=== PATIENT | female | born 1995 | race Caucasian/White ===

== ENCOUNTER 2022-02-14 14:33 | Outpatient (REF) | payer MEDICAID, SELFPAY ==
[2022-02-15 09:53] LABS: BV Int Neg Control Negative (Negative); BV Int Pos Control Positive (Positive)
[2022-02-15 10:17] LABS: CT PCR NOT DETECTED (Not Detect.); NG PCR NOT DETECTED (Not Detect.)
== END 2022-02-14 14:34 | disposition home or self-care (01) ==
LOC: HO.LAB 14:33
PROVIDERS: Visit Provider Advanced Practice Midwife
DX: Z32.01 Encounter for pregnancy test, result positive (principal); N92.6 Irregular menstruation, unspecified; R11.0 Nausea; Z20.2 Contact with and (suspected) exposure to infections with a predominantly sexual mode of transmission
CPT/HCPCS: 81025; 87480; 87491; 87510; 87591; 87660; 99202

== ENCOUNTER 2022-02-17 11:36 | Emergency (ER) | payer MEDICAID, SELFPAY ==
--- NOTE | ~2022-02-17 | US_ITS ---
EXAMINATION: US OBSTETRICAL ULTRASOUND CLINICAL INFORMATION: Lower abdominal pain and cramping COMPARISON: None. LMP: 12/11/2021. Gestational age by maternal dates is 9 weeks and 5 days. Estimated date of delivery by maternal dates is 09/17/2022. TECHNIQUE: Ultrasound of the maternal pelvis is performed using transabdominal and transvaginal transducers. Transvaginal imaging is performed due to inadequate visualization transabdominally. M-mode Doppler is also performed. FINDINGS: There is a single intrauterine gestational sac with visible yolk sac, and embryo/fetus. No definite cardiac activity. Moderate to large volume of subchorionic hematoma is noted. HR: cardiac definitively is not definitively determined as heart rate is not appreciated on M-mode. CRL (crown rump length): 0.5 cm (6 weeks and 2 days +/- 4 days). FLY (estimated date of delivery): 10/11/2022 +/- 4 days. MATERNAL ADNEXA: The right maternal ovary measures 1.9 x 1.3 x 1.6 cm. The left maternal ovary measures 2.7 x 1.5 x 1.8 cm. Ovaries are unremarkable in appearance. There is no significant maternal adnexal mass. No maternal pelvic ascites. US/US OB pelvic and transvaginal IMPRESSION: 1. Single intrauterine gestation with no definite cardiac activity identified with the crown-rump length measuring 0.5 cm. Sonographic age corresponds to 6 weeks and 2 days with an FLY of 10/11/2022. Findings are suspicious but not diagnostic for failure. Recommend follow-up ultrasound in 7-14 days and correlation with beta hCG. Moderate to large amount of subchorionic hematoma is also noted.
[2022-02-17 11:40] VITALS: BP 102/61; PULSE 71; RESP 18; TEMP 36.4; O2SAT 100; BMI 36.4
[2022-02-17 11:57] LABS: MANUAL DIFF FLAG NO
[2022-02-17 11:59] LABS: Basophils Percent Auto 0.3 % (0-2); Eosinophils Absolute Auto 0.1 X10*3/uL (0.0-0.4); Eosinophils Percent Auto 1.2 % (0-4); Hematocrit 34.8 % (37.0-47.0); Hemoglobin 11.1 g/dl (12.0-16.0); Imm Gran Abs Auto 0.04 X10*3/uL (0.00-0.03); Imm Gran Pct Auto 0.4 % (0.0-0.4); Lymphocytes Absolute Auto 2.8 X10*3/uL (1.2-4.9); Lymphocytes Percent Auto 29.5 % (20-40); Mean Corpuscular HGB Conc 31.9 g/dl (31.0-35.0); Mean Corpuscular Hemoglobin 26.5 pg (27.0-33.0); Mean Corpuscular Volume 83.1 fL (80.0-98.0); Mean Platelet Volume 10.6 fL (9.4-12.3); Monocytes Absolute Auto 0.5 X10*3/uL (0.1-1.2); Monocytes Percent Auto 5.6 % (2-11); Platelet Count 342 X10*3/uL (160-400); Red Blood Count 4.19 X10*6/uL (4.20-5.50); Red Cell Distribution Width 13.2 % (11.0-16.0); White Blood Count 9.5 X10*3/uL (4.8-10.8)
[2022-02-17 12:17] LABS: Anion Gap 11 (12-20); Blood Urea Nitrogen 8 mg/dL (9-16); Calcium 9.3 mg/dL (8.4-10.2); Carbon Dioxide 25 mmol/L (22-29); Chloride 103 mmol/L (96-108); Estimated Glomerular Filt Rate > 60; Glucose Random 77 mg/dL (60-115); Potassium 4.4 mmol/L (3.3-5.1); Sodium 135 mmol/L (135-145)
--- NOTE | 2022-02-17 16:13 | ED.ABDPAIN ---
HPI - Abdominal Pain General Chief Complaint: Abdominal Pain Stated Complaint: 9wks abdominal pain Time Seen by Provider: 02/17/22 16:06 Source: patient and hourly sign language interpreter Mode of arrival: ambulatory Limitations: no limitations History of Present Illness HPI narrative: G2P 9 weeks D = LMP here with c/o low intermittent pelvic pain no discharge no bleeding no n/v/d x 1 week sent by OB for US. Has no other complaints, no issues during first tested for STI on MD elicited complaint: abdominal pain Pertinent past history: other (9 weeks ) Onset (ago): week(s) (1) Pain Consistency: intermittent Location: suprapubic Severity: mild Quality: cramping Migration to: no migration Exacerbating factors: nothing Relieving factors: nothing Associated symptoms: denies other symptoms Related Data Previous Rx's Medication Instructions Recorded doxylamine succinate 25 mg tablet 25 mg PO BEDTIME PRN sleep #30 tabs 02/14/22 (Unisom (doxylamine)) vitamin with calcium 1 tab PO DAILY #30 tabs 02/14/22 no.72-iron 27 mg-folic acid 1 mg tablet ( Vitamins Plus Low Iron) pyridoxine (vitamin B6) 25 mg 25 mg PO TID PRN nausea and 02/14/22 tablet (Vitamin B-6) vomiting #90 tabs Allergies Allergy/AdvReac Type Severity Reaction Status Date / Time No Known Allergies Allergy Verified 02/14/22 14:42 Review of Systems Review of Systems Constitutional : No Weight loss, No Fever, No Chills ENT/Mouth : No sore throat, No Rhinorrhea Eyes: No Swelling, No Redness Cardiovascular : No Chest Pain, No SOB, NoEdema Respiratory : No Cough, No Sputum, No Wheezing Gastrointestinal : no Nausea, no Vomiting,no Diarrhea, positive abdominal Pain, No Hematochezia, No Melena Genitourinary : No Dysuria, No Urinary Frequency, No Hematuria, No Urgency , no vaginal bleeding Musculoskeletal : No joint pain, No Myalgias, No Joint Swelling Skin : No Skin Lesions, No rash Neuro : No Weakness, No Numbness, No Dizziness, No Headache Psych : No Anxiety/Panic, No Depression Heme/Lymph: No Bruising, No Lymphadenopathy Endocrine : No Polyuria, No Polydipsia All other systems reviewed and are negative. [facility] [place] Past Medical History Attestation statement: The following information was validated with the patient. Medical History Irregular menses PCOS (polycystic ovarian syndrome) Surgical History History of skin graft Social History Social History Alcohol intake: current Alcohol intake frequency: holidays/special occasions only Patient Tobacco Use Status: Never used Tobacco Advance Directives: No Advance Directives Information Provided: No Sexual orientation: Straight/Heterosexual Gender identity: Female Physical Exam ED Vital Signs: Vital Signs - 24 hr 02/17/22 11:40 Temperature 97.5 F Pulse Rate 71 Respiratory Rate 18 Blood Pressure 102/61 Pulse Oximetry 100 Oxygen Delivery Method Room Air BMI result Body Mass Index 36.4 Appearance: Alert. Oriented X3. No acute distress. Eyes: Pupils equal, round and reactive to light. ENT: Pharynx normal. Neck: Normal inspection. Neck supple. CVS: Normal heart rate and rhythm. Pulses normal. Respiratory: No respiratory distress. Breath sounds normal. Abdomen: Soft and non-tender. no rebound or guarding Skin: Skin warm and dry. Normal skin color. Normal skin turgor. Extremities: No lower extremity edema. No calf ttp Neuro: Oriented X 3. No motor deficit. No sensory deficit. Course Course Course Narrative: discussed at length need for follow up in 2 days for repeat hcg and US in 2 days suspect demise discussed reasons to return and that she may miscarry at home MDM - Abdominal Pain MDM Narrative Medical decision making narrative: 26 yo female 9 weeks D = LMP here with c/o low intermittent pelvic pain no associated vaginal bleeding, n/v/d, urinary problems, just had STI panel. At this time will obtain UA, US to r/o ectopic though she has no peritoneal signs. Lab Data Result diagrams: 02/17/22 11:54 02/17/22 11:54 Labs: Lab Results 02/17/22 02/17/22 02/17/22 Range/Units 11:54 11:54 11:54 WBC 9.5 (4.8-10.8) X10*3/uL RBC 4.19 L (4.20-5.50) X10*6/uL Hgb 11.1 L (12.0-16.0) g/dl Hct 34.8 L (37.0-47.0) % MCV 83.1 (80.0-98.0) fL MCH 26.5 L (27.0-33.0) pg MCHC 31.9 (31.0-35.0) g/dl RDW 13.2 (11.0-16.0) % Plt Count 342 (160-400) X10*3/uL MPV 10.6 (9.4-12.3) fL Immature Gran % (Auto) 0.4 (0.0-0.4) % Neut % (Auto) 63.0 (45-73) % Lymph % (Auto) 29.5 (20-40) % [place] % (Auto) 5.6 (2-11) % Eos % (Auto) 1.2 (0-4) % Baso % (Auto) 0.3 (0-2) % Lymph # (Auto) 2.8 (1.2-4.9) X10*3/uL [place] # (Auto) 0.5 (0.1-1.2) X10*3/uL Eos # (Auto) 0.1 (0.0-0.4) X10*3/uL Baso # (Auto) 0.0 (0.0-0.2) X10*3/uL Abs Immat Gran (auto) 0.04 H (0.00-0.03) X10*3/uL Absolute Neuts (auto) 6.0 (2.0-8.3) x10*3/uL Absolute Nucleated RBC 0.000 (0.0-0.012) X10*3/uL Nucleated RBC % (auto) 0.0 (0.0-0.2) /100WBC Sodium 135 (135-145) mmol/L Potassium 4.4 (3.3-5.1) mmol/L Chloride 103 (96-108) mmol/L Carbon Dioxide 25 (22-29) mmol/L Anion Gap 11 L (12-20) BUN 8 L (9-16) mg/dL Creatinine 0.65 (0.5-1.4) mg/dL Estim Creat Clear Calc 134.0 Estimated GFR > 60 Random Glucose 77 (60-115) mg/dL Calcium 9.3 (8.4-10.2) mg/dL Beta HCG, Quant 51437 mIU/mL Urine Color Urine Appearance Urine pH (5.0-8.0) Ur Specific [place] (1.005-1.025) Urine Protein (NEG-TRACE) MG/DL Urine Glucose (UA) (NEG) MG/DL Urine Ketones (NEG) MG/DL Urine Blood (NEG) Urine Nitrite (NEG) Ur Leukocyte Esterase (NEG) 02/17/22 Range/Units 16:34 WBC (4.8-10.8) X10*3/uL RBC (4.20-5.50) X10*6/uL Hgb (12.0-16.0) g/dl Hct (37.0-47.0) % MCV (80.0-98.0) fL MCH (27.0-33.0) pg MCHC (31.0-35.0) g/dl RDW (11.0-16.0) % Plt Count (160-400) X10*3/uL MPV (9.4-12.3) fL Immature Gran % (Auto) (0.0-0.4) % Neut % (Auto) (45-73) % Lymph % (Auto) (20-40) % [place] % (Auto) (2-11) % Eos % (Auto) (0-4) % Baso % (Auto) (0-2) % Lymph # (Auto) (1.2-4.9) X10*3/uL [place] # (Auto) (0.1-1.2) X10*3/uL Eos # (Auto) (0.0-0.4) X10*3/uL Baso # (Auto) (0.0-0.2) X10*3/uL Abs Immat Gran (auto) (0.00-0.03) X10*3/uL Absolute Neuts (auto) (2.0-8.3) x10*3/uL Absolute Nucleated RBC (0.0-0.012) X10*3/uL Nucleated RBC % (auto) (0.0-0.2) /100WBC Sodium (135-145) mmol/L Potassium (3.3-5.1) mmol/L Chloride (96-108) mmol/L Carbon Dioxide (22-29) mmol/L Anion Gap (12-20) BUN (9-16) mg/dL Creatinine (0.5-1.4) mg/dL Estim Creat Clear Calc Estimated GFR Random Glucose (60-115) mg/dL Calcium (8.4-10.2) mg/dL Beta HCG, Quant mIU/mL Urine Color YELLOW Urine Appearance CLEAR Urine pH 5.5 (5.0-8.0) Ur Specific [place] 1.015 (1.005-1.025) Urine Protein NEG (NEG-TRACE) MG/DL Urine Glucose (UA) NEG (NEG) MG/DL Urine Ketones NEG (NEG) MG/DL Urine Blood NEG (NEG) Urine Nitrite NEG (NEG) Ur Leukocyte Esterase NEG (NEG) Discharge Plan Discharge Clinical Impression: Threatened miscarriage Patient Disposition: Home, Self-Care Instructions: Threatened Miscarriage (ED) Additional Instructions: necesita repetir los an?lisis de henrietta en 2 d?as para los niveles hormonales y repetir el ultrasonido en 2 d?as puede empezar a sangrar y tener un aborto espont?amanda en casa. si tiene sangrado yohana, dolor y co?gulos grandes, regrese. llama a tu obstetra ma?ivan 1. Single intrauterine gestation with no definite cardiac activity identified with the crown-rump length measuring 0.5 cm. Sonographic age corresponds to 6 weeks and 2 days with an FLY of 10/11/2022. Findings are suspicious but not diagnostic for failure. Recommend follow-up ultrasound in 7-14 days and correlation with beta hCG. Moderate to large amount of subchorionic hematoma is also noted. ? Prescriptions: No Action Unisom (doxylamine) 25 mg tablet 25 mg PO BEDTIME PRN (Reason: sleep) Qty: 30 3RF pyridoxine (vitamin B6) [Vitamin B-6] 25 mg tablet 25 mg PO TID PRN (Reason: nausea and vomiting) Qty: 90 3RF Rx Instructions: may take every 6-8 hours for nausea Vitamin Plus Low Iron 27 mg iron- 1 mg tablet 1 tab PO DAILY Qty: 30 11RF Stand Alone Forms: Work/School Release Print Language: Sinhala
[2022-02-17 16:39] LABS: Appearance Urine CLEAR; Color Urine YELLOW; Glucose Urine UA NEG (NEG); Leukocyte Esterase Urine NEG (NEG); Nitrite Urine NEG (NEG); PH 5.5 (5.0-8.0); Specific Gravity - Urine 1.015 (1.005-1.025); Urine Blood NEG (NEG); Urine Ketones NEG (NEG); Urine Protein NEG (NEG-TRACE)
== END 2022-02-17 19:06 | disposition home or self-care (01) ==
PROVIDERS: Emergency Provider Emergency Medicine
DX: O20.0 Threatened abortion (principal); Z3A.09 9 weeks gestation of pregnancy
CPT/HCPCS: 36415; 76801; 76817; 80048; 81003; 84702; 85025; 99282; 99284

== ENCOUNTER 2022-02-19 09:53 | Emergency (ER) | payer MEDICAID, SELFPAY ==
[2022-02-19 10:18] VITALS: BP 100/58; PULSE 88; RESP 18; TEMP 36.9; O2SAT 98; BMI 33.6
[2022-02-19 10:41] LABS: MANUAL DIFF FLAG NO
[2022-02-19 10:43] LABS: Basophils Percent Auto 0.3 % (0-2); Eosinophils Absolute Auto 0.1 X10*3/uL (0.0-0.4); Eosinophils Percent Auto 0.8 % (0-4); Hematocrit 35.4 % (37.0-47.0); Hemoglobin 11.3 g/dl (12.0-16.0); Imm Gran Abs Auto 0.03 X10*3/uL (0.00-0.03); Imm Gran Pct Auto 0.3 % (0.0-0.4); Lymphocytes Absolute Auto 2.6 X10*3/uL (1.2-4.9); Lymphocytes Percent Auto 28.7 % (20-40); Mean Corpuscular HGB Conc 31.9 g/dl (31.0-35.0); Mean Corpuscular Hemoglobin 26.6 pg (27.0-33.0); Mean Corpuscular Volume 83.3 fL (80.0-98.0); Mean Platelet Volume 10.5 fL (9.4-12.3); Monocytes Absolute Auto 0.4 X10*3/uL (0.1-1.2); Monocytes Percent Auto 4.2 % (2-11); Neutrophils Percent Auto 65.7 % (45-73); Platelet Count 357 X10*3/uL (160-400); Red Blood Count 4.25 X10*6/uL (4.20-5.50); Red Cell Distribution Width 13.2 % (11.0-16.0); White Blood Count 9.1 X10*3/uL (4.8-10.8)
[2022-02-19 10:47] LABS: Appearance Urine HAZY; Color Urine YELLOW; Glucose Urine UA NEG (NEG); Leukocyte Esterase Urine NEG (NEG); Nitrite Urine NEG (NEG); PH 5.5 (5.0-8.0); Specific Gravity - Urine >= 1.030 (1.005-1.025); UPreg QC Valid YES; Urine Blood NEG (NEG); Urine Ketones NEG (NEG); Urine Pregnancy POSITIVE (NEGATIVE); Urine Protein NEG (NEG-TRACE)
[2022-02-19 10:54] LABS: Anion Gap 14 (12-20); Blood Urea Nitrogen 12 mg/dL (9-16); Calcium 9.1 mg/dL (8.4-10.2); Carbon Dioxide 20 mmol/L (22-29); Chloride 105 mmol/L (96-108); Creatinine Clr Calc Pharmacy 118.2; Estimated Glomerular Filt Rate > 60; Glucose Random 122 mg/dL (60-115); Sodium 135 mmol/L (135-145)
--- NOTE | 2022-02-19 12:57 | ED_ITS ---
HPI - General Chief complaint: Recheck/Abnormal Lab/Rx Stated complaint: Repeat labs/ultrasound 6 wks preg Time Seen by Provider: 02/19/22 11:07 Source: patient and family Mode of arrival: ambulatory Limitations: language barrier ( Wallisian-speaking) History of Present Illness HPI Narrative: 26-year-old female who is Wallisian-speaking who is AB1 was told she was 9 weeks due to her last menstrual period presenting here with persistent abdominal pain that has been unchanged for the past few days. She was seen here on 02/17/2022 for same complaint and had a serum quant and ultrasound although the ultrasound revealed a moderate to large subchorionic hemtoma and they recommended repeat ultrasound in 7-14 days and they reported that it is suspicious but not diagnostic for failure. Although the patient was told to come back in 2 days by the provider who seen her for repeat serum quant and repeat ultrasound due to she did not have PCP or OBGYN follow-up per the patient. Although when I reviewed the records it appears that the patient was seen by the security police officer Melvi Deleon and Melvi Deleon had ordered outpatient labs and an outpatient ultrasound and the patient I believe did not understand Melvi Deleon and came here to the ER instead for the ultrasound On 02/17/2022 and this is when Dr. Han seen her. She denies any worsening abdominal pain, any fevers, any nausea vomiting, any back pain, any flank pain, any abnormal vaginal discharge or any dysuria or urinary urgency or frequency or any vaginal bleeding at this time. She reports she needs help to find a OBGYN and PCP. I explained to her that Melvi Deleon the security police officer will most likely follow up with her as her Ob security police officer and Dr. Zerbe. VARGAS Complaint: abdominal pain Onset (ago): day(s) ( for the past few days and unchange) Pain Consistency: constant Location: pelvis and abdomen Severity: mild Quality: Cramping and Aching Relieving factors: none Exacerbating factors: none Associated symptoms: denies other symptoms Vaginal discharge: none Vaginal bleeding: none Patient : Yes Expected Date of Delivery: 10/11/22 Number of Weeks : 9 OB History - Previous Pregnancies: miscarriage care: followed by OB Related Data : 2 Para: 0 Total number of abortions (spontaneous and elective): 1 Previous Rx's Medication Instructions Recorded doxylamine succinate 25 mg tablet 25 mg PO BEDTIME PRN sleep #30 tabs 02/14/22 (Unisom (doxylamine)) vitamin with calcium 1 tab PO DAILY #30 tabs 02/14/22 no.72-iron 27 mg-folic acid 1 mg tablet ( Vitamins Plus Low Iron) pyridoxine (vitamin B6) 25 mg 25 mg PO TID PRN nausea and 02/14/22 tablet (Vitamin B-6) vomiting #90 tabs metronidazole 500 mg tablet 500 mg PO BID 10 days #20 tabs 02/19/22 Allergies Allergy/AdvReac Type Severity Reaction Status Date / Time No Known Allergies Allergy Verified 02/14/22 14:42 Review of Systems Review of Systems: Constitutional : No Fever, No Chills ENT/Mouth : No sore throat, No Rhinorrhea Eyes: No Eye Pain, No Redness Cardiovascular : No Chest Pain, No SOB Respiratory : No Cough, No Sputum, No Wheezing Gastrointestinal : No Nausea, No Vomiting, No Diarrhea, positive abdominal pain, Genitourinary : No irregular bleeding, No Dysuria, No Urinary Frequency, No pelvic pain Musculoskeletal : No Myalgias Skin : No rash Neuro : No Weakness, No Headache Psych : No Anxiety/Panic, No Depression Heme/Lymph: No bruising, No Lymphadenopathy Endocrine : No Polyuria, No Polydipsia Yes all other systems are reviewed and are negative [facility] Past Medical History Attestation statement: The following information was validated with the patient. Source: old records reviewed, obtained from family and nursing notes reviewed Medical History PCOS (polycystic ovarian syndrome) Surgical History History of skin graft : 2 Para: 0 Total number of abortions (spontaneous and elective): 1 Social History Social History Alcohol intake: current Alcohol intake frequency: holidays/special occasions only Patient Tobacco Use Status: Never used Tobacco Advance Directives: No Advance Directives Information Provided: Yes Patient : Yes Sexual orientation: Straight/Heterosexual Gender identity: Female Physical Exam Vital Signs: Vital Signs: Last Vital Signs Temp 98.4 F 02/19/22 10:18 Pulse 88 02/19/22 10:18 Resp 18 02/19/22 10:18 BP 100/58 L 02/19/22 10:18 Pulse Ox 98 02/19/22 10:18 O2 Del Method 02/19/22 10:18 BMI result Body Mass Index 33.6 vital signs have been reviewed as normal and appeared to be correct. Blood pressure normal. Heart rate normal. Respiration rate normal. Temperature normal. Oxygen saturation normal. Appearance: Alert. Oriented X3. No acute distress. Head: Normal external exam. Normocephalic. Atraumatic. Eyes: PERRLA. EOMI. Conjunctiva and sclera normal. Eyelids normal. ENT: Pharynx normal. Uvula midline. Moist mucous membranes. No lesions/ulcerations or masses noted on the tongue. Normal voice. No trismus noted. No drooling noted. No muffled voice noted. Neck: Normal inspection. Neck supple. FROM. No adenopathy. Thyroid Normal. No tracheal deviation noted. No crepitus is noted. No meningeal signs. No neck mass noted. No signs of trauma noted. CVS: Normal heart rate and rhythm. Heart sound normal. Pulses normal throughout. No murmurs/rales/gallops. Respiratory: No respiratory distress. Painless inspiration. Breath sounds normal. No wheezes/rales/rhonchi noted. Chest nontendee. No accessory muscle usage noted or decreased air movement noted. Abdomen: Soft and nontender. Bowel sounds normal in all 4 quadrants. No distention noted. No organomegaly noted. No visible injury noted. Back: No CVA tenderness. Full range of motion noted. Nontender. Skin: Skin warm and dry. Normal skin color. Normal skin turgor. No rashes/lesions/lacerations noted. Extremities:Extremities exhibit normal range of motion and nontender. Neuro: Oriented X 3. No motor deficit. No sensory deficit. Reflexes normal. Normal steady gait. No focal neuro deficits noted. CN's II-XII intact bilaterally? Vascular: + radial pulses/+ 2 distal pedal pulses/+2 dorsalis pedis b/l. Normal cap refill. No cyanosis noted to upper extremity nails and lower extremity toes nails. Course Course Course Narrative: 26-year-old female [id number] who was told she is 9 weeks by security police officer although had an ultrasound 2 days ago and had a a moderate to large amount of subchorionic hematoma along with possible failure due to her ultrasound corresponded to 6 weeks and 2 days with an estimated due date of 10/11/2022 was told to come back here for repeat ultrasound and serum quant in 2 days presenting with persistent suprapubic abdominal cramping. She denies any fevers, nausea/ vomiting, back pain, flank pain, abnormal vaginal discharge or abnormal vaginal bleeding at this time. Therefore labs were repeated and her serum quant did drop. I discussed this case with Dr. Crowe he reported that the patient does not need a repeat ultrasound at this time she will need 1 in 9 days although we discussed multiple options including starting medication for at-home and patient reported she would rather have the repeat ultrasound in 9 days with a repeat serum quant to be certain that this a failure. We also discussed treating the patient for bacterial vaginosis that she was positive when not treated. Therefore she will follow up with Dr. Sebastien Macias in the office in 9 days and she will have repeat blood work for serum quant and repeat ultrasound before she sees Dr. Crowe the same day in the office. She understands agrees with this plan. Will treat for bacterial vaginosis as well. Along with instructions return if any new or worsening symptoms especially increased abdominal pain/any back pain or any vaginal bleeding. Reevaluation(s) Reevaluation #1: patient's blood type is O-positive. Antibody screen negative. Therefore at this time patient will be discharged she does not need Rhogam Time: 13:37 MDM - OB/Uterine Contractions Medical Records Attestation: I reviewed the patient's medical records. Lab Data Attestation: I reviewed the patient's lab results. Result diagrams: 02/19/22 10:34 02/19/22 10:34 Labs: Lab Results 02/19/22 02/19/22 02/19/22 Range/Units 10:34 10:34 10:34 WBC 9.1 (4.8-10.8) X10*3/uL RBC 4.25 (4.20-5.50) X10*6/uL Hgb 11.3 L (12.0-16.0) g/dl Hct 35.4 L (37.0-47.0) % MCV 83.3 (80.0-98.0) fL MCH 26.6 L (27.0-33.0) pg MCHC 31.9 (31.0-35.0) g/dl RDW 13.2 (11.0-16.0) % Plt Count 357 (160-400) X10*3/uL MPV 10.5 (9.4-12.3) fL Immature Gran % (Auto) 0.3 (0.0-0.4) % Neut % (Auto) 65.7 (45-73) % Lymph % (Auto) 28.7 (20-40) % [place] % (Auto) 4.2 (2-11) % Eos % (Auto) 0.8 (0-4) % Baso % (Auto) 0.3 (0-2) % Lymph # (Auto) 2.6 (1.2-4.9) X10*3/uL [place] # (Auto) 0.4 (0.1-1.2) X10*3/uL Eos # (Auto) 0.1 (0.0-0.4) X10*3/uL Baso # (Auto) 0.0 (0.0-0.2) X10*3/uL Abs Immat Gran (auto) 0.03 (0.00-0.03) X10*3/uL Absolute Neuts (auto) 6.0 (2.0-8.3) x10*3/uL Absolute Nucleated RBC 0.000 (0.0-0.012) X10*3/uL Nucleated RBC % (auto) 0.0 (0.0-0.2) /100WBC Sodium 135 (135-145) mmol/L Potassium 4.0 (3.3-5.1) mmol/L Chloride 105 (96-108) mmol/L Carbon Dioxide 20 L (22-29) mmol/L Anion Gap 14 (12-20) BUN 12 (9-16) mg/dL Creatinine 0.70 (0.5-1.4) mg/dL Estim Creat Clear Calc 118.2 Estimated GFR > 60 Random Glucose 122 H (60-115) mg/dL Calcium 9.1 (8.4-10.2) mg/dL Beta HCG, Quant 70223 mIU/mL Urine Color Urine Appearance Urine pH (5.0-8.0) Ur Specific [place] (1.005-1.025) Urine Protein (NEG-TRACE) MG/DL Urine Glucose (UA) (NEG) MG/DL Urine Ketones (NEG) MG/DL Urine Blood (NEG) Urine Nitrite (NEG) Ur Leukocyte Esterase (NEG) Urine Test (NEGATIVE) Blood Type Antibody Screen Antibody Titer 02/19/22 02/19/22 02/19/22 Range/Units 10:40 10:40 12:46 WBC (4.8-10.8) X10*3/uL RBC (4.20-5.50) X10*6/uL Hgb (12.0-16.0) g/dl Hct (37.0-47.0) % MCV (80.0-98.0) fL MCH (27.0-33.0) pg MCHC (31.0-35.0) g/dl RDW (11.0-16.0) % Plt Count (160-400) X10*3/uL MPV (9.4-12.3) fL Immature Gran % (Auto) (0.0-0.4) % Neut % (Auto) (45-73) % Lymph % (Auto) (20-40) % [place] % (Auto) (2-11) % Eos % (Auto) (0-4) % Baso % (Auto) (0-2) % Lymph # (Auto) (1.2-4.9) X10*3/uL [place] # (Auto) (0.1-1.2) X10*3/uL Eos # (Auto) (0.0-0.4) X10*3/uL Baso # (Auto) (0.0-0.2) X10*3/uL Abs Immat Gran (auto) (0.00-0.03) X10*3/uL Absolute Neuts (auto) (2.0-8.3) x10*3/uL Absolute Nucleated RBC (0.0-0.012) X10*3/uL Nucleated RBC % (auto) (0.0-0.2) /100WBC Sodium (135-145) mmol/L Potassium (3.3-5.1) mmol/L Chloride (96-108) mmol/L Carbon Dioxide (22-29) mmol/L Anion Gap (12-20) BUN (9-16) mg/dL Creatinine (0.5-1.4) mg/dL Estim Creat Clear Calc Estimated GFR Random Glucose (60-115) mg/dL Calcium (8.4-10.2) mg/dL Beta HCG, Quant mIU/mL Urine Color YELLOW Urine Appearance HAZY Urine pH 5.5 (5.0-8.0) Ur Specific [place] >= 1.030 H (1.005-1.025) Urine Protein NEG (NEG-TRACE) MG/DL Urine Glucose (UA) NEG (NEG) MG/DL Urine Ketones NEG (NEG) MG/DL Urine Blood NEG (NEG) Urine Nitrite NEG (NEG) Ur Leukocyte Esterase NEG (NEG) Urine Test POSITIVE H (NEGATIVE) Blood Type O Positive Antibody Screen NEGATIVE Antibody Titer TNP Procedures Perimortem Number of Weeks : 9 Discharge Plan Discharge Clinical Impression: Threatened miscarriage, Bacterial vaginosis Patient Disposition: Home, Self-Care Instructions: Threatened Miscarriage (ED), Bacterial Vaginosis (ED) Additional Instructions: Dr. Crowe the OBGYN came down and spoke to he reported that he will have his office call you tomorrow for repeat blood work in the outpatient lab and repeat ultrasound in the outpatient lab. You do not come to the ER for this blood work or this ultrasound. If you develops any new or worsening symptoms especially worsening abdominal pain/back pain or any vaginal bleeding you will need to return to the emergency department immediately. Otherwise follow-up with OBGYN Dr. Crowe that you med here in the emergency department. El Dr. Crowe, el [facility]?logo obstetra, baj? y habl? con ?l, inform? que bledsoe oficina lo llamar? ma?ivan para repetir el an?lisis de henrietta en el laboratorio ambulatorio y repetir el ultrasonido en el laboratorio ambulatorio. Usted no viene a la darell de emergencias para angella an?lisis de henrietta o angella ultrasonido. Si desarrolla alg?n s?ntoma nuevo o que empeora, especialmente empeorando el dolor abdominal / dolor de espalda o cualquier sangrado vaginal, deber? regresar al departamento de emergencias de inmediato. De lo contrario, danish un seguimiento con el ginec?logo obstetra Dr. Crowe que usted m?dico aqu? en el departamento de emergencias. Prescriptions: New metronidazole 500 mg tablet 500 mg PO BID 10 Days Qty: 20 0RF No Action Unisom (doxylamine) 25 mg tablet 25 mg PO BEDTIME PRN (Reason: sleep) Qty: 30 3RF pyridoxine (vitamin B6) [Vitamin B-6] 25 mg tablet 25 mg PO TID PRN (Reason: nausea and vomiting) Qty: 90 3RF Rx Instructions: may take every 6-8 hours for nausea Vitamin Plus Low Iron 27 mg iron- 1 mg tablet 1 tab PO DAILY Qty: 30 11RF Referrals: [facility] [Primary Care Provider] - 2 days Anton Crowe MD [Physician] - 02/28/22 Print Language: Wallisian
--- NOTE | 2022-02-19 13:09 | P.CONOB_ITS ---
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 There is a single intrauterine gestational sac with visible yolk sac, and embryo/fetus. No definite cardiac activity. Moderate to large volume of subchorionic hematoma is noted. HR: cardiac definitively is not definitively determined as heart rate is not appreciated on M-mode. CRL (crown rump length): ? 0.5 cm (6 weeks and 2 days +/- 4 days). FLY (estimated date of delivery):? 10/11/2022 +/- 4 days. ? MATERNAL ADNEXA: ? ? The right maternal ovary measures 1.9 x 1.3 x 1.6 cm. The left maternal ovary measures 2.7 x 1.5 x 1.8 cm.? Ovaries are unremarkable in appearance. There is no significant maternal adnexal mass.? No maternal pelvic ascites. 09/13/2011 hCG was 36,686 repeated today was 34,832. GC and chlamydia were negative. Rh positive cc:: CC: PARK MAINTAINER - Review of Systems Review of Systems ROS Unobtainable: All systems reviewed & are unremarkable except as noted in HPI and below Cardiovascular: Denies Palpatations, Loss of consciousness or Chest pain Respiratory: Denies Cough, Wheezing or Shortness of breath Musculoskeletal: Denies Low back pain Gastrointestinal: Denies Heartburn, Constipation, Diarrhea, Nausea or Vomiting Genitourinary: Denies Pain with urination, Burning with urination or Urinary frequency Neurological: Denies Migranes Psychological: Denies Depression OB [facility] Past Medical History Medical History PCOS (polycystic ovarian syndrome) Surgical History Surgical History History of skin graft Social History Social History Alcohol intake: current Alcohol intake frequency: holidays/special occasions only Patient Tobacco Use Status: Never used Tobacco Advance Directives: No Advance Directives Information Provided: Yes Patient : Yes Sexual orientation: Straight/Heterosexual Gender identity: Female Meds Allergies Allergy/AdvReac Type Severity Reaction Status Date / Time No Known Allergies Allergy Verified 02/14/22 14:42 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 Physical Exam Vitals Vital signs: Temp Pulse Resp BP Pulse Ox O2 Del Method 98.4 F 88 18 100/58 L 98 02/19/22 10:18 02/19/22 10:18 02/19/22 10:18 02/19/22 10:18 02/19/22 10:18 02/19/22 10:18 BMI result Body Mass Index 33.6 Constitutional General Appearance: Healthy appearing, Well-nourished and Well-developed Psychiatric Mood and Affect: active and alert, normal mood and normal affect Skin Appearance: No rashes and No lesions Lungs Respiratory Effort: No intercostal retractions Auscultation: Clear to auscultation Cardiovascular Auscultation: RRR Abdomen Auscultation/Inspection/Palpation: Normal bowel sounds, Soft, Non-distended and No tenderness Female Genitalia (Pelvic) Exam: Deferred 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 - Results Labs CBC & Chem 7: 02/19/22 10:34 02/19/22 10:34 Labs: Short CBC 02/19/22 Range/Units 10:34 WBC 9.1 (4.8-10.8) X10*3/uL Hgb 11.3 L (12.0-16.0) g/dl Hct 35.4 L (37.0-47.0) % Plt Count 357 (160-400) X10*3/uL BMP 02/19/22 10:34 Sodium 135 Potassium 4.0 Chloride 105 Carbon Dioxide 20 L BUN 12 Creatinine 0.70 Calcium 9.1 Urine 02/19/22 02/19/22 Range/Units 10:40 10:40 Urine Color YELLOW Urine Appearance HAZY Urine pH 5.5 (5.0-8.0) Ur Specific [place] >= 1.030 H (1.005-1.025) Urine Protein NEG (NEG-TRACE) MG/DL Urine Glucose (UA) NEG (NEG) MG/DL Urine Test POSITIVE H (NEGATIVE) Assessment and Plan (1) Threatened miscarriage: Status: Acute Discussed with the patient the findings on ultrasound showing subchorionic hematoma and a CRL of 5 mm with no heart rate. Explained to the patient that the drop in hCG in 48 hours is nonreassuring regarding the viability of . Offered the patient medical termination of using Mifeprostone and misoprostol protocol, the patient would like to wait, repeat hCG and ultrasound to confirm missed A/B prior to any intervention, the patient understands that spontaneous if it occurs spontaneously is associated with a higher risk of incomplete . Will Order hCG and ultrasound and follow-up in the office. SAB warnings given to patient, she is to call or go to the emergency in case of cramping vaginal bleeding or pain. All questions answered, the patient verbalized understanding.
== END 2022-02-19 13:52 | disposition home or self-care (01) ==
PROVIDERS: Emergency Provider Emergency Medicine
DX: O20.0 Threatened abortion (principal); O23.591 Infection of other part of genital tract in pregnancy, first trimester; B96.89 Other specified bacterial agents as the cause of diseases classified elsewhere; Z3A.09 9 weeks gestation of pregnancy
CPT/HCPCS: 36415; 80048; 81003; 81025; 84702; 85025; 86850; 86900; 99283; 99284

== ENCOUNTER 2022-02-28 11:21 | Outpatient (REF) | payer MEDICAID, SELFPAY ==
--- NOTE | ~2022-02-28 | US_ITS ---
EXAMINATION: US OBSTETRICAL ULTRASOUND CLINICAL INFORMATION: Pelvic and perineal pain COMPARISON: Previous dated 02/17/2022. Technique; Real-time imaging by the employment security officer. Threshing Machine Operator does identify a pole. Measures at 0.59 cm. This may correlate to a 6 week 3 day but no cardiac activity is detected on this exam. The gestational sac is measured by the employment security officer at 3.1 x 1.3 x 2.5 cm. This would correlate for a 7 week 4 day to 8 week 4 day . The employment security officer outlines a fluid collection in the region of the lower uterine segment. Visually this appears to be increasing from previous. Measured at 3.7 x 2.1 x 2.5 cm. Most consistent with subchorionic hemorrhage. The transverse imaging also shows probable fluid along the right and anterior aspect of the thecal sac The right ovary is measuring 2.7 x 1.1 x 1.7 cm. No flow is documented by the employment security officer in the right ovary. Visually does not appear enlarged. Left ovary measures 2.4 x 1.5 x 1.9 cm. Flow is documented. There is no free fluid. US/US OB pelvic and transvaginal IMPRESSION: Gestational sac is seen and there is a crown-rump length but no activity is detected by the employment security officer. [place]-rump length is 0.59 cm which correspond to a 6 week 3 day . Attention to follow-up. Fluid collection is noted most consistent with subchorionic bleed. Other findings are described above
[2022-02-28 12:54] LABS: HCG Quantitative 28228 mIU/mL
== END 2022-02-28 11:22 | disposition home or self-care (01) ==
LOC: HO.US 11:21
PROVIDERS: Visit Provider Obstetrics & Gynecology
DX: O02.1 Missed abortion (principal)
CPT/HCPCS: 36415; 76801; 76817; 84702; 99212

== ENCOUNTER 2022-03-14 11:45 | Outpatient (REF) | payer MEDICAID, SELFPAY ==
[2022-03-14 13:14] LABS: HCG Quantitative 46 mIU/mL
== END 2022-03-14 11:46 | disposition home or self-care (01) ==
LOC: HO.LAB 11:45
PROVIDERS: Visit Provider Obstetrics & Gynecology
DX: O02.1 Missed abortion (principal); Z3A.01 Less than 8 weeks gestation of pregnancy
CPT/HCPCS: 36415; 84702; 99212

== ENCOUNTER 2022-04-10 07:17 | Emergency (ER) | payer MEDICAID, SELFPAY ==
--- NOTE | ~2022-04-10 | US_ITS ---
EXAMINATION: US VENOUS WITH DOPPLER UPPER EXTREMITY, LEFT CLINICAL INFORMATION: Neck pain and shoulder pain COMPARISON: None TECHNIQUE: Ultrasound of the upper extremity is performed using compression sonography and color and pulse Doppler flow with assessment of augmentation of flow. There is also imaging and Doppler assessment of the jugular and subclavian veins. Spectral analysis with color-flow imaging is performed. FINDINGS: Respiratory variation, normal compression, and augmented flow are noted throughout the upper extremity including the axillary, and radial and ulnar veins. There is an anatomic variant where the radial artery and ulnar artery extend up to the axillary area without a formed brachial artery and the radial and ulnar veins do the same without a brachial vein. There is normal flow in the internal jugular and subclavian veins. There is no visible deep or superficial thrombophlebitis. If the patient's symptoms progress, a followup ultrasound in 5 -7 days might be of value to exclude proximal propagation from a nonvisualized distal arm vein. US/US venous duplex UE LT IMPRESSION: No DVT demonstrated in the left upper extremity
--- NOTE | ~2022-04-10 | CT_ITS ---
EXAMINATION: CT CHEST WITH CONTRAST CLINICAL INFORMATION: Left supraclavicular swelling COMPARISON: None TECHNIQUE: Multidetector volumetric CT imaging of the chest was obtained after the administration of 65 mL of Omnipaque 350 intravenous contrast without immediate adverse reactions. Axial MIP volume rendering provided. Sagittal and coronal reformatted images were obtained. This CT examination was performed using dose optimization techniques as appropriate, variously including the following: *Automated exposure control *Adjustment of mA and/or kV according to patient size (this includes techniques or standardized protocols for targeted exams where dose is matched to indication/reason for exam; i.e. extremities or head) *Use of iterative reconstruction technique DLP: 420 mGy-cm FINDINGS: LUNGS: The lungs are clear with no evidence of inflammation or significant nodules. Central airways are patent. No bronchiectasis. There are a few scattered sub-4 mm densities present. MEDIASTINUM: Supraclavicular region of the left internal jugular vein is prominent. No suspicious suspicious thyroid mass is appreciated. No mediastinal lymphadenopathy is appreciated. There is residual thymic tissue present. Heart normal size. No pericardial effusion. No thoracic aortic aneurysm. No mediastinal or hilar lymphadenopathy. PLEURA: There is no pleural effusion. No pleural mass or thickening. AXILLA: No lymphadenopathy. UPPER ABDOMEN: Unremarkable OSSEOUS STRUCTURES: Unremarkable. CT/CT chest w con IMPRESSION: Prominent left internal jugular vein which may correspond to left supraclavicular swelling. No abnormal mass or lymphadenopathy appreciated. No acute parenchymal disease.
[2022-04-10 07:42] VITALS: BP 116/65; PULSE 73; RESP 14; TEMP 36.6; O2SAT 98; BMI 36.8
--- NOTE | 2022-04-10 10:33 | ED_ITS ---
HPI - Neck Pain/Injury General Chief Complaint: Neck Pain/Injury Stated Complaint: L neck pain, swollen Time Seen by Provider: 04/10/22 09:46 Source: patient Mode of arrival: ambulatory History of Present Illness HPI Narrative: 27-year-old female with a past medical history PCOS, presenting to the ED complaining of left neck/shoulder pain radiating to left jaw/left ear since last night. Reports noted swelling above clavicle since this morning. Does report doing laundry/heavy lifting at work, denies known injury, trauma, fall, numbne ss, tingling, weakness, CP, SOB, vision change/loss, chills complaint: neck pain Onset (ago): day(s) Related Data Previous Rx's Medication Instructions Recorded doxylamine succinate 25 mg tablet 25 mg PO BEDTIME PRN sleep #30 tabs 02/14/22 (Unisom (doxylamine)) vitamin with calcium 1 tab PO DAILY #30 tabs 02/14/22 no.72-iron 27 mg-folic acid 1 mg tablet ( Vitamins Plus Low Iron) pyridoxine (vitamin B6) 25 mg 25 mg PO TID PRN nausea and 02/14/22 tablet (Vitamin B-6) vomiting #90 tabs acetaminophen 500 mg tablet 500 mg PO Q6H PRN fever or pain 04/10/22 (Tylenol Extra Strength) #14 tabs cyclobenzaprine 5 mg tablet 5 mg PO Q8H PRN pain (scale score 04/10/22 7-10) 5 days #14 tabs lidocaine 5 % topical patch 1 patch topical DAILY PRN pain #30 04/10/22 (Lidoderm) ea naproxen 500 mg tablet 500 mg PO BID PRN pain 10 days #20 04/10/22 tabs Allergies Allergy/AdvReac Type Severity Reaction Status Date / Time No Known Allergies Allergy Verified 03/14/22 11:47 Review of Systems Review of Systems: Constitutional: No Fever, No Chills, No Night Sweats, No Fatigue, No Malaise, No weight loss ENT/Mouth: No Ear Pain, No Nasal Congestion, No Sinus Pain, No Hoarseness, No sore throat, No Rhinorrhea, No Swallowing Difficulty Eyes: No Eye Pain, No Swelling, No Redness, No Discharge, No Vision Changes Cardiovascular: No Chest Pain, No SOB, No Dyspnea on Exertion, No Orthopnea, No Edema Respiratory: No Cough, No Sputum, No Dyspnea Gastrointestinal: No Nausea, No Vomiting, No Diarrhea, No Constipation, No A bdominal pain Genitourinary: No Dysuria, No Urinary Frequency, No Hematuria, No Urinary Incontinence/retention, No Flank Pain Musculoskeletal: + joint pain, No Myalgias, No Joint Swelling Skin: No Skin Lesions, No rash Neuro: No Weakness, No Numbness, No Paresthesias, No Dizziness, No Headache Yes all other systems are reviewed and are negative Constitutional: Constitutional: Reports as per [facility] Past Medical History Attestation statement: The following information was validated with the patient. Medical History Irregular menses PCOS (polycystic ovarian syndrome) Surgical History History of skin graft Social History Social History Alcohol intake: current Alcohol intake frequency: holidays/special occasions only Patient Tobacco Use Status: Never used Tobacco Advance Directives: No Advance Directives Information Provided: No Sexual orientation: Straight/Heterosexual Gender identity: Female Physical Exam Vital Signs: Vital Signs: Last Vital Signs Temp 97.9 F 04/10/22 16:49 Pulse 55 04/10/22 16:49 Resp 16 04/10/22 16:49 BP 112/62 04/10/22 16:49 Pulse Ox 100 04/10/22 16:49 O2 Del Method 04/10/22 16:49 BMI result Body Mass Index 36.8 Const: General: cooperative, healthy appearing, comfortable, no acute distress, well developed, alert and awake Orientation/consciousness: patient oriented x3 Limitations: no limitations HEENT: Head: Yes normal to inspection and Yes atraumatic Ears: hearing grossly normal bilaterally, external ears normal, TM's normal bilaterally and mastoids normal General nose exam: Normal external nose present Face and sinus: Yes normal facial exam Mouth: Normal oral and palatal mucosa present Throat: Yes posterior oropharynx normal, Yes tonsils normal, Yes uvula midline, No uvula laterally displaced and No uvular edema Eyes: General: appearance normal, both eyes and all related structures Pupils: Equal, round and reactive pupils present EOM: EOMs intact bilaterally Neck: Other: No midline cervical spinous tenderness. + left-sided supraclavicular swelling noted with mild tenderness to palpation. No appreciable facial/neck swelling. Full range of motion to neck intact. No erythema/crepitus Neck: Yes normal visual inspection, Yes no lymphadenopathy and Yes no meningeal signs Resp: Effort & Inspection: normal respiratory effort and no respiratory distress Auscultation: clear to auscultation bilaterally Cardio: Rate: regular rate Heart sounds: S1 normal heart sound present and S2 normal heart sound present Peripheral pulses: radial pulses present and ulnar radial pulses present GI: Inspection: Yes normal to inspection Palpation (GI): Soft to palpation and nontender Back/Spine/Pelvis: Other: No midline thoracic/lumbar spinous tenderness/step-off or deformity Skin: Rashes: no rashes Wounds: no wounds Neuro: General: patient oriented x3, gait normal, tone normal, moves all extremities and no meningeal signs Cranial nerves: Yes Equal, round and reactive pupils present Gait exam (Neuro): Normal gait present Extrem: General: Yes normal to inspection Course Course Course Narrative: -mild leukocytosis of 11.4. Labs otherwise unremarkable. CT chest w con IMPRESSION: Prominent left internal jugular vein which may correspond to left supraclavicular swelling. No abnormal mass or lymphadenopathy appreciated. ? ?No acute parenchymal disease. > results discussed. Plan to obtain upper extremity venous duplex to rule out DVT -1728--US venous duplex UE LT IMPRESSION: No DVT demonstrated in the left upper extremity Results discussed with patient with supervisor prepress including worrisome signs and symptoms and strict return precautions, and when to return to the emergency department. They verbalized understanding and feel safe for discharge at this time. MDM - Neck Pain/Injury MDM Narrative Medical decision making narrative: 27-year-old female with a past medical history PCOS, presenting to the ED complaining of left neck/shoulder pain radiating to left jaw/left ear since last night. On exam vital signs stable, NAD, nontoxic appearing, physical exam as above with noted swelling to left supraclavicular region without evidence of cellulitis, or oral infection. TMs WNL. Full range of motions neck intact. Case discussed with Dr. Yoder. Concern for possible superior vena cava syndrome vs mass vs ?lymphoma vs MSK spasming/swelling. Lower suspicion for cervical dissection Plan: Labs, chest CT with contrast Differential Diagnosis Differential diagnosis: Likely strain of neck muscle Medical Records Attestation: I reviewed the patient's medical records. Lab Data Attestation: I reviewed the patient's lab results. Result diagrams: 04/10/22 10:47 04/10/22 10:47 Labs: Lab Results 04/10/22 04/10/22 04/10/22 Range/Units 10:47 10:47 10:47 WBC 11.4 H (4.8-10.8) X10*3/uL RBC 4.46 (4.20-5.50) X10*6/uL Hgb 12.0 (12.0-16.0) g/dl Hct 37.5 (37.0-47.0) % MCV 84.1 (80.0-98.0) fL MCH 26.9 L (27.0-33.0) pg MCHC 32.0 (31.0-35.0) g/dl RDW 14.2 (11.0-16.0) % Plt Count 375 (160-400) X10*3/uL MPV 10.4 (9.4-12.3) fL Immature Gran % (Auto) 0.4 (0.0-0.4) % Neut % (Auto) 62.5 (45-73) % Lymph % (Auto) 29.3 (20-40) % [place] % (Auto) 6.2 (2-11) % Eos % (Auto) 1.3 (0-4) % Baso % (Auto) 0.3 (0-2) % Lymph # (Auto) 3.3 (1.2-4.9) X10*3/uL [place] # (Auto) 0.7 (0.1-1.2) X10*3/uL Eos # (Auto) 0.2 (0.0-0.4) X10*3/uL Baso # (Auto) 0.0 (0.0-0.2) X10*3/uL Abs Immat Gran (auto) 0.04 H (0.00-0.03) X10*3/uL Absolute Neuts (auto) 7.1 (2.0-8.3) x10*3/uL Absolute Nucleated RBC 0.000 (0.0-0.012) X10*3/uL Nucleated RBC % (auto) 0.0 (0.0-0.2) /100WBC Sodium 139 (135-145) mmol/L Potassium 4.9 D (3.3-5.1) mmol/L Chloride 105 (96-108) mmol/L Carbon Dioxide 24 (22-29) mmol/L Anion Gap 15 (12-20) BUN 9 (9-16) mg/dL Creatinine 0.72 (0.5-1.4) mg/dL Estim Creat Clear Calc 120.4 Estimated GFR > 60 Random Glucose 79 (60-115) mg/dL Calcium 9.6 (8.4-10.2) mg/dL Total Bilirubin 0.2 (0.0-1.0) mg/dL Direct Bilirubin < 0.2 (0.0-0.5) mg/dL AST 23 (5-31) U/L ALT 11 (0-31) U/L Alkaline Phosphatase 85 (39-117) U/L Troponin I High Sens < 3.5 (<3.5-17.0) ng/L Total Protein 8.3 H (6.5-8.0) g/dL Albumin 4.3 (3.5-5.0) g/dL Beta HCG, Quant < 2 mIU/mL Urine Test (NEGATIVE) 04/10/22 Range/Units 12:27 WBC (4.8-10.8) X10*3/uL RBC (4.20-5.50) X10*6/uL Hgb (12.0-16.0) g/dl Hct (37.0-47.0) % MCV (80.0-98.0) fL MCH (27.0-33.0) pg MCHC (31.0-35.0) g/dl RDW (11.0-16.0) % Plt Count (160-400) X10*3/uL MPV (9.4-12.3) fL Immature Gran % (Auto) (0.0-0.4) % Neut % (Auto) (45-73) % Lymph % (Auto) (20-40) % [place] % (Auto) (2-11) % Eos % (Auto) (0-4) % Baso % (Auto) (0-2) % Lymph # (Auto) (1.2-4.9) X10*3/uL [place] # (Auto) (0.1-1.2) X10*3/uL Eos # (Auto) (0.0-0.4) X10*3/uL Baso # (Auto) (0.0-0.2) X10*3/uL Abs Immat Gran (auto) (0.00-0.03) X10*3/uL Absolute Neuts (auto) (2.0-8.3) x10*3/uL Absolute Nucleated RBC (0.0-0.012) X10*3/uL Nucleated RBC % (auto) (0.0-0.2) /100WBC Sodium (135-145) mmol/L Potassium (3.3-5.1) mmol/L Chloride (96-108) mmol/L Carbon Dioxide (22-29) mmol/L Anion Gap (12-20) BUN (9-16) mg/dL Creatinine (0.5-1.4) mg/dL Estim Creat Clear Calc Estimated GFR Random Glucose (60-115) mg/dL Calcium (8.4-10.2) mg/dL Total Bilirubin (0.0-1.0) mg/dL Direct Bilirubin (0.0-0.5) mg/dL AST (5-31) U/L ALT (0-31) U/L Alkaline Phosphatase (39-117) U/L Troponin I High Sens (<3.5-17.0) ng/L Total Protein (6.5-8.0) g/dL Albumin (3.5-5.0) g/dL Beta HCG, Quant mIU/mL Urine Test NEGATIVE (NEGATIVE) Discharge Plan Discharge Clinical Impression: Jugular venous engorgement, Neck pain Patient Disposition: Home, Self-Care Instructions: Neck Pain (ED) Additional Instructions: Your CT scan shows a prominent left internal jugular vein. Your ultrasound was negative for a blood clot IT IS VERY IMPORTANT TO FOLLOW-UP WITH HER PRIMARY CARE DOCTOR. IF SYMPTOMS PERSIST OR WORSEN, SWELLING WORSENS AREA BECOMES RED, HEAVES, LIGHTHEADED/DIZZY, HAVE CHEST PAIN OR SHORTNESS OF BREATH RETURN TO THE EMERGENCY DEPARTMENT Flexeril is a muscle relaxer, take at night as it makes you drowsy, do not drive, drink alcohol, or operate machinery while taking it Naproxen as an anti-inflammatory / pain medication, take with food Lidoderm patches are numbing patches, apply to painful area In addition take Tylenol at home [place] tomograf?a computarizada muestra quentin vena yugular interna izquierda prominente. [place] ultrasonido fue negativo para un co?gulo de henrietta ES MUY IMPORTANTE EL SEGUIMIENTO CON [place] M?DICO DE ATENCI?N PRIMARIA. SI LOS S?NTOMAS PERSISTEN O EMPEORAN, LA INFLAMACI?N EMPEORA EL ?BAKARI SE ENROJA, SE VUELVE ALGOD?N, SE MAREA, TIENE DOLOR EN EL PECHO O FALTA DE AIRE REGRESE AL DEPARTAMENTO DE EMERGENCIA Flexeril es un relajante muscular, t?shaun por la noche ya que te adormece, no conduzcas, bebas alcohol ni operes maquinaria mientras lo rosendo. Naproxeno david medicamento antiinflamatorio/analg?sico, t?hernández con alimentos Los parches de Lidoderm son parches anest?sicos, se aplican en el ?bakari dolorida Adem?s lisa Tylenol en casa Prescriptions: New acetaminophen [Tylenol Extra Strength] 500 mg tablet 500 mg PO Q6H PRN (Reason: fever or pain) Qty: 14 0RF lidocaine [Lidoderm] 5 % adhesive patch,medicated 1 patch topical DAILY MDD remove after 12 hours PRN (Reason: pain) Qty: 30 0RF Rx Instructions: leave on most painful area for up to 12 hrs naproxen 500 mg tablet 500 mg PO BID PRN (Reason: pain) 10 Days Qty: 20 0RF cyclobenzaprine 5 mg tablet 5 mg PO Q8H PRN (Reason: pain (scale score 7-10)) 5 Days Qty: 14 0RF No Action Unisom (doxylamine) 25 mg tablet 25 mg PO BEDTIME PRN (Reason: sleep) Qty: 30 3RF pyridoxine (vitamin B6) [Vitamin B-6] 25 mg tablet 25 mg PO TID PRN (Reason: nausea and vomiting) Qty: 90 3RF Rx Instructions: may take every 6-8 hours for nausea Vitamin Plus Low Iron 27 mg iron- 1 mg tablet 1 tab PO DAILY Qty: 30 11RF Referrals: [facility] [Primary Care Provider] - 3 days Stand Alone Forms: Work/School Release Print Language: Mongolian
[2022-04-10 10:53] LABS: MANUAL DIFF FLAG NO
[2022-04-10 10:57] LABS: Basophils Percent Auto 0.3 % (0-2); Eosinophils Absolute Auto 0.2 X10*3/uL (0.0-0.4); Eosinophils Percent Auto 1.3 % (0-4); Hematocrit 37.5 % (37.0-47.0); Imm Gran Abs Auto 0.04 X10*3/uL (0.00-0.03); Imm Gran Pct Auto 0.4 % (0.0-0.4); Lymphocytes Absolute Auto 3.3 X10*3/uL (1.2-4.9); Lymphocytes Percent Auto 29.3 % (20-40); Mean Corpuscular Hemoglobin 26.9 pg (27.0-33.0); Mean Corpuscular Volume 84.1 fL (80.0-98.0); Mean Platelet Volume 10.4 fL (9.4-12.3); Monocytes Absolute Auto 0.7 X10*3/uL (0.1-1.2); Monocytes Percent Auto 6.2 % (2-11); Neutrophils Absolute Auto 7.1 x10*3/uL (2.0-8.3); Neutrophils Percent Auto 62.5 % (45-73); Platelet Count 375 X10*3/uL (160-400); Red Blood Count 4.46 X10*6/uL (4.20-5.50); Red Cell Distribution Width 14.2 % (11.0-16.0); White Blood Count 11.4 X10*3/uL (4.8-10.8)
[2022-04-10 12:34] LABS: UPreg QC Valid YES; Urine Pregnancy NEGATIVE (NEGATIVE)
[2022-04-10] MEDS: iohexoL 350 MG/ML 100 ML INFUS..BTL IV (13:20)
[2022-04-10 13:34] LABS: HCG Quantitative < 2 mIU/mL
[2022-04-10 13:41] LABS: Alanine Aminotransferase 11 U/L (0-31); Albumin Level 4.3 g/dL (3.5-5.0); Alkaline Phosphatase 85 U/L (39-117); Anion Gap 15 (12-20); Aspartate Amino Transferase 23 U/L (5-31); Bilirubin Direct < 0.2 mg/dL (0.0-0.5); Bilirubin Total 0.2 mg/dL (0.0-1.0); Blood Urea Nitrogen 9 mg/dL (9-16); Calcium 9.6 mg/dL (8.4-10.2); Carbon Dioxide 24 mmol/L (22-29); Chloride 105 mmol/L (96-108); Creatinine Clr Calc Pharmacy 120.4; Estimated Glomerular Filt Rate > 60; Glucose Random 79 mg/dL (60-115); Potassium 4.9 mmol/L (3.3-5.1); Sodium 139 mmol/L (135-145); Total Protein 8.3 g/dL (6.5-8.0)
[2022-04-10 13:58] VITALS: BP 112/61; PULSE 51; RESP 14; TEMP 36.8; O2SAT 100
[2022-04-10 16:07] LABS: Troponin-I High Sensitivity < 3.5 ng/L (<3.5-17.0)
[2022-04-10] MEDS: Acetaminophen 325 MG TABLET 650 MG PO (16:47)
[2022-04-10 16:49] VITALS: BP 112/62; PULSE 55; RESP 16; TEMP 36.6; O2SAT 100
== END 2022-04-10 18:23 | disposition home or self-care (01) ==
PROVIDERS: Physician Assistant; Emergency Provider Emergency Medicine Emergency Medical Services
DX: M54.2 Cervicalgia (principal); M25.512 Pain in left shoulder; R68.84 Jaw pain; R60.0 Localized edema; M54.6 Pain in thoracic spine; Z79.899 Other long term (current) drug therapy
CPT/HCPCS: 36415; 71260; 80048; 80076; 81025; 84484; 84702; 85025; 93971; 99284; Q9967

== ENCOUNTER 2022-06-07 17:54 | Emergency (ER) | payer MEDICAID, SELFPAY ==
--- NOTE | ~2022-06-07 | US_ITS ---
EXAMINATION: US OBSTETRICAL ULTRASOUND CLINICAL INFORMATION: Abdominal pain. Pelvic pain. COMPARISON: None. LMP: 05/12/2022. Gestational age by maternal dates is 3 weeks, 5 days. Estimated date of delivery by maternal dates is 02/16/2023. TECHNIQUE: Transabdominal and transvaginal imaging performed utilizing grayscale and color Doppler technique with spectral analysis FINDINGS: No intrauterine is identified. No gestational sac. Endometrial signature measures up to 1.6 cm. MATERNAL ADNEXA: The right maternal ovary measures 2.6 x 2.0 x 2.1 cm. There is a 1.6 cm corpus luteum. The left maternal ovary measures 3.8 x 3.7 x 3.9 cm. There is a 3.3 cm probable hemorrhagic cyst in the left ovary. No follow-up imaging required. There is no significant maternal adnexal mass. No maternal pelvic ascites. US/US OB <= 14 weeks fetus IMPRESSION: * No intrauterine is identified. Recommend correlation with serial hCG levels with follow-up imaging family history 1 week. * No evidence of ectopic . * No ovarian torsion. * Left ovarian hemorrhagic cyst * No maternal adnexal mass or pelvic ascites.
[2022-06-07 17:57] VITALS: BP 113/60; PULSE 82; RESP 18; TEMP 37.2; O2SAT 98; BMI 35.4
[2022-06-07 19:12] LABS: Appearance Urine Clear; Color Urine Yellow; Glucose Urine UA Negative (Negative); Leukocyte Esterase Urine Negative (Negative); Nitrite Urine Negative (Negative); PH 5.5 (5.0-9.0); Urine Blood Negative (Negative); Urine Ketones Negative (Negative); Urine Protein Negative (Neg-Trace)
[2022-06-07 19:13] LABS: UPreg QC Valid YES; Urine Pregnancy POSITIVE (NEGATIVE)
[2022-06-07 19:29] VITALS: BP 110/71; PULSE 75; RESP 18; TEMP 37.3; O2SAT 100
[2022-06-07 19:41] LABS: MANUAL DIFF FLAG NO
[2022-06-07 20:06] LABS: Basophils Absolute Auto 0.1 X10*3/uL (0.0-0.2); Basophils Percent Auto 0.4 % (0-2); Eosinophils Absolute Auto 0.2 X10*3/uL (0.0-0.4); Eosinophils Percent Auto 1.1 % (0-4); Hematocrit 33.1 % (37.0-47.0); Hemoglobin 10.8 g/dl (12.0-16.0); Imm Gran Abs Auto 0.04 X10*3/uL (0.00-0.03); Imm Gran Pct Auto 0.3 % (0.0-0.4); Lymphocytes Absolute Auto 3.8 X10*3/uL (1.2-4.9); Lymphocytes Percent Auto 29.2 % (20-40); Mean Corpuscular HGB Conc 32.6 g/dl (31.0-35.0); Mean Corpuscular Hemoglobin 27.4 pg (27.0-33.0); Mean Platelet Volume 10.5 fL (9.4-12.3); Monocytes Absolute Auto 0.8 X10*3/uL (0.1-1.2); Neutrophils Absolute Auto 8.3 x10*3/uL (2.0-8.3); Platelet Count 353 X10*3/uL (160-400); Red Blood Count 3.94 X10*6/uL (4.20-5.50); Red Cell Distribution Width 13.3 % (11.0-16.0); White Blood Count 13.1 X10*3/uL (4.8-10.8)
[2022-06-07 20:08] LABS: Alanine Aminotransferase 17 U/L (0-31); Albumin Level 4.2 g/dL (3.5-5.0); Alkaline Phosphatase 88 U/L (39-117); Anion Gap 16 (12-20); Aspartate Amino Transferase 19 U/L (5-31); Bilirubin Direct < 0.2 mg/dL (0.0-0.5); Bilirubin Total 0.2 mg/dL (0.0-1.0); Blood Urea Nitrogen 14 mg/dL (9-16); Calcium 9.8 mg/dL (8.4-10.2); Carbon Dioxide 25 mmol/L (22-29); Chloride 101 mmol/L (96-108); Creatinine Clr Calc Pharmacy 114.4; Estimated Glomerular Filt Rate > 60; Glucose Random 83 mg/dL (60-115); Lipase 22 U/L (8-78); Potassium 3.9 mmol/L (3.3-5.1); Sodium 138 mmol/L (135-145); Total Protein 7.3 g/dL (6.5-8.0)
[2022-06-07 20:14] LABS: HCG Quantitative 142 mIU/mL
--- NOTE | 2022-06-07 20:16 | ED.PREGNANCY ---
HPI - General Chief complaint: Abdominal Pain Stated complaint: ? abd pain miscarriage 3 months ago Time Seen by Provider: 06/07/22 18:56 Source: patient Mode of arrival: ambulatory Limitations: no limitations History of Present Illness HPI Narrative: Patient presents emergency department for evaluation of lower abdominal pain and cramping. She reports that 4 days ago she had a positive test at tap history when she presented to have a Nexplanon implanted. Reports last menstrual period was early this month, uncertain of the exact date. Denies fevers, chills, nausea, vomiting, upper abdominal pain, back pain, dysuria, urinary frequency/urgency/hesitancy, abnormal vaginal discharge, vaginal bleeding. Reports a history of miscarriage approximately 3 months ago. Related Data Previous Rx's Medication Instructions Recorded doxylamine succinate 25 mg tablet 25 mg PO BEDTIME PRN sleep #30 tabs 02/14/22 (Unisom (doxylamine)) vitamin with calcium 1 tab PO DAILY #30 tabs 02/14/22 no.72-iron 27 mg-folic acid 1 mg tablet ( Vitamins Plus Low Iron) pyridoxine (vitamin B6) 25 mg 25 mg PO TID PRN nausea and 02/14/22 tablet (Vitamin B-6) vomiting #90 tabs acetaminophen 500 mg tablet 500 mg PO Q6H PRN fever or pain 04/10/22 (Tylenol Extra Strength) #14 tabs cyclobenzaprine 5 mg tablet 5 mg PO Q8H PRN pain (scale score 04/10/22 7-10) 5 days #14 tabs lidocaine 5 % topical patch 1 patch topical DAILY PRN pain #30 04/10/22 (Lidoderm) ea naproxen 500 mg tablet 500 mg PO BID PRN pain 10 days #20 04/10/22 tabs Allergies Allergy/AdvReac Type Severity Reaction Status Date / Time No Known Allergies Allergy Verified 03/14/22 11:47 Review of Systems Review of Systems: Constitutional : No Weight loss, No Fever, No Chills ENT/Mouth :? No sore throat, No Rhinorrhea Eyes: No Swelling, No Redness Cardiovascular : No Chest Pain, No SOB, No Edema Respiratory : No Cough, No Sputum, No Wheezing Gastrointestinal : No Nausea, no Vomiting, no Diarrhea, positive abdominal pain, No Hematochezia, No Melena Genitourinary : No Dysuria, No Urinary Frequency, No Hematuria, No Urgency? Musculoskeletal : No joint pain, No Myalgias, No Joint Swelling Skin : No Skin Lesions, No rash Neuro : No Weakness, No Numbness, No Dizziness, No Headache Psych : No Anxiety/Panic, No Depression Yes all other systems are reviewed and are negative [facility] Past Medical History Attestation statement: The following information was validated with the patient. Source: old records reviewed Medical History Irregular menses PCOS (polycystic ovarian syndrome) Surgical History History of skin graft Social History Social History Alcohol intake: current Alcohol intake frequency: holidays/special occasions only Patient Tobacco Use Status: Never used Tobacco Advance Directives: No Advance Directives Information Provided: No Sexual orientation: Straight/Heterosexual Gender identity: Female Physical Exam Vital Signs: Vital Signs: Last Vital Signs Temp 99.1 F 06/07/22 19:29 Pulse 75 06/07/22 19:29 Resp 18 06/07/22 19:29 BP 110/71 06/07/22 19:29 Pulse Ox 100 06/07/22 19:29 O2 Del Method 06/07/22 19:29 BMI result Body Mass Index 35.4 Appearance: Alert.?Oriented to person, place and time. No acute distress.?Normal affect. Eyes: Pupils equal, round and reactive to light.? ENT: Pharynx normal.?? Neck: Normal inspection.? Neck supple.?? CVS: Heart sounds normal. Normal heart rate and rhythm.? Pulses normal.?? Respiratory: No respiratory distress.? Lung sounds clear to auscultation bilaterally?? Abdomen: Soft and non-tender. Normoactive bowel sounds. ? Skin: Skin warm and dry.? Normal skin color.? Extremities: No lower extremity edema.? Neuro: Moves all extremities spontaneously. Sensation intact bilaterally. No focal neuro deficits. Ambulates with normal steady gait. Course Course Course Narrative: Patient is a 27-year-old female with a past medical history of PCOS, she is a G3 T1 L1. Presents emergency department for evaluation of abdominal pain/cramping with positive test earlier this week. Last menstrual period approximately 4 weeks ago uncertain of exact date. Abdominal exam is benign. She is overall well appearing. No active bleeding. Vital signs are stable. Will obtain basic labs, urinalysis, and ultrasound to exclude ectopic . Reevaluation(s) Reevaluation #1: CBC reveals a normocytic anemia and mild leukocytosis at 13.1. CMP is unremarkable. HCG is 142, most consistent with early , <5 weeks. Urinalysis without evidence of infection. Ultrasound reveals no intrauterine to be identified, recommendation for serial hCG levels and follow-up imaging over the next week. No evidence of ectopic , ovarian torsion. There is however mention of a left ovarian hemorrhagic cyst, no active bleeding, vital signs are stable. No abdominal rigidity or guarding. Discussed all findings with patient. Advised outpatient follow-up with OB provider within 1 week. Given contact information for OB associated with [facility] [place]. Reviewed worsening signs and symptoms to return back to emergency department for, patient verbalized understanding. She was discharged home in stable condition. Time: 21:30 MDM - OB/Uterine Contractions Medical Records Attestation: I reviewed the patient's medical records. Lab Data Attestation: I reviewed the patient's lab results. Result diagrams: 06/07/22 19:35 06/07/22 19:35 Labs: Lab Results 06/07/22 06/07/22 06/07/22 Range/Units 18:53 18:53 19:35 WBC 13.1 H (4.8-10.8) X10*3/uL RBC 3.94 L (4.20-5.50) X10*6/uL Hgb 10.8 L (12.0-16.0) g/dl Hct 33.1 L (37.0-47.0) % MCV 84.0 (80.0-98.0) fL MCH 27.4 (27.0-33.0) pg MCHC 32.6 (31.0-35.0) g/dl RDW 13.3 (11.0-16.0) % Plt Count 353 (160-400) X10*3/uL MPV 10.5 (9.4-12.3) fL Immature Gran % (Auto) 0.3 (0.0-0.4) % Neut % (Auto) 63.0 (45-73) % Lymph % (Auto) 29.2 (20-40) % [place] % (Auto) 6.0 (2-11) % Eos % (Auto) 1.1 (0-4) % Baso % (Auto) 0.4 (0-2) % Lymph # (Auto) 3.8 (1.2-4.9) X10*3/uL [place] # (Auto) 0.8 (0.1-1.2) X10*3/uL Eos # (Auto) 0.2 (0.0-0.4) X10*3/uL Baso # (Auto) 0.1 (0.0-0.2) X10*3/uL Abs Immat Gran (auto) 0.04 H (0.00-0.03) X10*3/uL Absolute Neuts (auto) 8.3 (2.0-8.3) x10*3/uL Absolute Nucleated RBC 0.000 (0.0-0.012) X10*3/uL Nucleated RBC % (auto) 0.0 (0.0-0.2) /100WBC Sodium (135-145) mmol/L Potassium (3.3-5.1) mmol/L Chloride (96-108) mmol/L Carbon Dioxide (22-29) mmol/L Anion Gap (12-20) BUN (9-16) mg/dL Creatinine (0.5-1.4) mg/dL Estim Creat Clear Calc Estimated GFR Random Glucose (60-115) mg/dL Calcium (8.4-10.2) mg/dL Total Bilirubin (0.0-1.0) mg/dL Direct Bilirubin (0.0-0.5) mg/dL AST (5-31) U/L ALT (0-31) U/L Alkaline Phosphatase (39-117) U/L Total Protein (6.5-8.0) g/dL Albumin (3.5-5.0) g/dL Lipase (8-78) U/L Beta HCG, Quant mIU/mL Urine Color Yellow Urine Appearance Clear Urine pH 5.5 (5.0-9.0) Ur Specific [place] 1.020 (1.005-1.025) Urine Protein Negative (Neg-Trace) mg/dL Urine Glucose (UA) Negative (Negative) mg/dL Urine Ketones Negative (Negative) mg/dL Urine Blood Negative (Negative) Urine Nitrite Negative (Negative) Ur Leukocyte Esterase Negative (Negative) Urine Test POSITIVE H (NEGATIVE) 06/07/22 Range/Units 19:35 WBC (4.8-10.8) X10*3/uL RBC (4.20-5.50) X10*6/uL Hgb (12.0-16.0) g/dl Hct (37.0-47.0) % MCV (80.0-98.0) fL MCH (27.0-33.0) pg MCHC (31.0-35.0) g/dl RDW (11.0-16.0) % Plt Count (160-400) X10*3/uL MPV (9.4-12.3) fL Immature Gran % (Auto) (0.0-0.4) % Neut % (Auto) (45-73) % Lymph % (Auto) (20-40) % [place] % (Auto) (2-11) % Eos % (Auto) (0-4) % Baso % (Auto) (0-2) % Lymph # (Auto) (1.2-4.9) X10*3/uL [place] # (Auto) (0.1-1.2) X10*3/uL Eos # (Auto) (0.0-0.4) X10*3/uL Baso # (Auto) (0.0-0.2) X10*3/uL Abs Immat Gran (auto) (0.00-0.03) X10*3/uL Absolute Neuts (auto) (2.0-8.3) x10*3/uL Absolute Nucleated RBC (0.0-0.012) X10*3/uL Nucleated RBC % (auto) (0.0-0.2) /100WBC Sodium 138 (135-145) mmol/L Potassium 3.9 D (3.3-5.1) mmol/L Chloride 101 (96-108) mmol/L Carbon Dioxide 25 (22-29) mmol/L Anion Gap 16 (12-20) BUN 14 D (9-16) mg/dL Creatinine 0.78 (0.5-1.4) mg/dL Estim Creat Clear Calc 114.4 Estimated GFR > 60 Random Glucose 83 (60-115) mg/dL Calcium 9.8 (8.4-10.2) mg/dL Total Bilirubin 0.2 (0.0-1.0) mg/dL Direct Bilirubin < 0.2 (0.0-0.5) mg/dL AST 19 (5-31) U/L ALT 17 (0-31) U/L Alkaline Phosphatase 88 (39-117) U/L Total Protein 7.3 (6.5-8.0) g/dL Albumin 4.2 (3.5-5.0) g/dL Lipase 22 (8-78) U/L Beta HCG, Quant 142 mIU/mL Urine Color Urine Appearance Urine pH (5.0-9.0) Ur Specific [place] (1.005-1.025) Urine Protein (Neg-Trace) mg/dL Urine Glucose (UA) (Negative) mg/dL Urine Ketones (Negative) mg/dL Urine Blood (Negative) Urine Nitrite (Negative) Ur Leukocyte Esterase (Negative) Urine Test (NEGATIVE) Imaging Data US pelvic: Radiologist's impression: US/US OB <= 14 weeks fetus IMPRESSION: *? No intrauterine is identified. Recommend correlation with serial hCG levels with follow-up imaging family history 1 week. *? No evidence of ectopic . *? No ovarian torsion. *? Left ovarian hemorrhagic cyst *? No maternal adnexal mass or pelvic ascites. Discharge Plan Discharge Clinical Impression: Abdominal pain, Positive blood test Patient Disposition: Home, Self-Care Additional Instructions: As we discussed, your blood levels are detectable but they are very low. The ultrasound does not reveal any evidence of at this time. As we discussed, it is possible that the previous menstrual bleeding you experienced earlier this month was a miscarriage in the blood levels are still normalizing at this time, or this is possibly a very early . You will need to follow-up with the OB office to monitor your blood levels and determine whether repeat ultrasound is needed. Return to the emergency department any new or worsening symptoms or concerns Prescriptions: No Action acetaminophen [Tylenol Extra Strength] 500 mg tablet 500 mg PO Q6H PRN (Reason: fever or pain) Qty: 14 0RF lidocaine [Lidoderm] 5 % adhesive patch,medicated 1 patch topical DAILY MDD remove after 12 hours PRN (Reason: pain) Qty: 30 0RF Rx Instructions: leave on most painful area for up to 12 hrs naproxen 500 mg tablet 500 mg PO BID PRN (Reason: pain) 10 Days Qty: 20 0RF cyclobenzaprine 5 mg tablet 5 mg PO Q8H PRN (Reason: pain (scale score 7-10)) 5 Days Qty: 14 0RF Unisom (doxylamine) 25 mg tablet 25 mg PO BEDTIME PRN (Reason: sleep) Qty: 30 3RF pyridoxine (vitamin B6) [Vitamin B-6] 25 mg tablet 25 mg PO TID PRN (Reason: nausea and vomiting) Qty: 90 3RF Rx Instructions: may take every 6-8 hours for nausea Vitamin Plus Low Iron 27 mg iron- 1 mg tablet 1 tab PO DAILY Qty: 30 11RF Referrals: Anton Crowe MD [Physician] -
[2022-06-07 21:43] VITALS: BP 111/64; PULSE 71; RESP 16; O2SAT 100
== END 2022-06-07 21:57 | disposition home or self-care (01) ==
PROVIDERS: Emergency Provider Emergency Medicine
DX: R25.2 Cramp and spasm (principal); Z79.899 Other long term (current) drug therapy
CPT/HCPCS: 36415; 76801; 80053; 81003; 81025; 82248; 83690; 84702; 85025; 99283; 99284

== ENCOUNTER 2022-06-14 11:31 | Outpatient (REF) | payer MEDICAID, SELFPAY ==
[2022-06-14 13:24] LABS: HCG Quantitative 2575 mIU/mL
== END 2022-06-14 11:32 | disposition home or self-care (01) ==
LOC: HO.LAB 11:31
PROVIDERS: Visit Provider Advanced Practice Midwife
DX: Z34.90 Encounter for supervision of normal pregnancy, unspecified, unspecified trimester (principal)
CPT/HCPCS: 36415; 84702; 99212

== ENCOUNTER 2022-06-20 15:27 | Outpatient (REF) | payer MEDICAID, SELFPAY ==
--- NOTE | ~2022-06-20 | US_ITS ---
EXAMINATION: US OBSTETRICAL ULTRASOUND CLINICAL INFORMATION: Dating. A counter for supervision abnormal . COMPARISON: Previous exam 06/07/2022. LMP: 05/12/2022. Gestational age by maternal dates is 5 weeks 4 days. Estimated date of delivery by maternal dates is 02/16/2023. TECHNIQUE: Transabdominal and transvaginal first trimester OB ultrasound. Transvaginal exam was performed for better visualization of the uterus and ovaries. FINDINGS: There is a single intrauterine gestational sac with visible yolk sac, embryo/fetus, and cardiac activity. There is no significant subchorionic hemorrhage or hematoma. HR: 101 beats per minute. CRL (crown rump length): 0.23 cm (5 weeks 6 days +/- 4 days). FLY (estimated date of delivery): 02/14/2023 +/- 4 days. MATERNAL ADNEXA: The right maternal ovary measures 2.6 x 1.7 x 2.7 cm. There is a 1.7 x 1.2 x 1.7 cm minimally complex right ovarian cyst. The left maternal ovary measures 2.6 x 2.1 x 2.2 cm. There is a 2.1 x 1.8 x 1.5 cm simple cyst. This is decreased from 3 x 3.3 x 3.1 cm on previous exam. No maternal pelvic ascites. US/US OB pelvic and transvaginal IMPRESSION: 1. Single intrauterine gestation with ultrasound gestational age of 5 weeks 6 days +/- 4 days. 2. Estimated date of delivery is 02/14/2023 +/- 4 days. 3. No maternal adnexal mass or pelvic ascites.
== END 2022-06-20 15:28 | disposition home or self-care (01) ==
LOC: HO.US 15:27
PROVIDERS: Visit Provider Advanced Practice Midwife
DX: Z34.91 Encounter for supervision of normal pregnancy, unspecified, first trimester (principal); Z3A.01 Less than 8 weeks gestation of pregnancy
CPT/HCPCS: 76801; 76817